=== PATIENT | male | born 1995 | race Two or more races ===

== ENCOUNTER 2020-05-21 13:53 | Outpatient (CLI) | payer OTHER | END 2020-05-21 13:56 | disposition home or self-care (01) | LOC: LAB 13:53 | PROVIDERS: ATTEND Physical Medicine & Rehabilitation | DX: Z20.828 Contact with and (suspected) exposure to other viral communicable diseases (principal) ==

== ENCOUNTER 2021-07-16 09:00 | Outpatient (CLI) | payer OTHER | END 2021-07-16 09:30 | disposition home or self-care (01) | LOC: PPH VACUNA 09:00 | PROVIDERS: ATTEND Emergency Medicine Pediatric Emergency Medicine | DX: Z23 Encounter for immunization (principal) ==

== ENCOUNTER 2022-06-22 08:04 | Emergency (ER) | payer OTHER ==
[~2022-06-22] VITALS: Ht 157.5 cm; Wt 65.3 kg
== END 2022-06-22 11:38 | disposition home or self-care (01) ==
LOC: ER 08:04
DX: A49.3 Mycoplasma infection, unspecified site (principal); J06.9 Acute upper respiratory infection, unspecified; Z20.822 Contact with and (suspected) exposure to COVID-19; Z91.013 Allergy to seafood

== ENCOUNTER 2022-08-28 13:12 | Emergency (ER) | payer OTHER ==
[~2022-08-28] VITALS: Ht 165.1 cm; Wt 65.3 kg
== END 2022-08-28 17:20 | disposition home or self-care (01) ==
LOC: ER 13:12
DX: B34.9 Viral infection, unspecified (principal); Z20.822 Contact with and (suspected) exposure to COVID-19

== ENCOUNTER 2022-11-14 10:29 | Emergency (ER) | payer OTHER ==
[~2022-11-14] VITALS: Ht 165.1 cm; Wt 65.8 kg
[2022-11-14] MEDS ORDERED: INTESTINEX680 M1 PO (21:13)
[2022-11-14] MEDS ORDERED: PEPCID AC20 MG PO (21:13)
[2022-11-14] MEDS ORDERED: LEVSIN/SL0.125 MG SL (21:13)
== END 2022-11-14 21:47 | disposition home or self-care (01) ==
LOC: ER 10:29
DX: R10.10 Upper abdominal pain, unspecified (principal); Z91.013 Allergy to seafood